=== PATIENT | male | born 1960 | race Two or more races ===

== ENCOUNTER 2022-05-13 15:59 | Inpatient (IN) | payer OTHER ==
[2022-05-13 16:07] VITALS: BMI 25.7
[2022-05-13 17:01] LABS: BASO % 0.4 % (0-2.0); EOS % 0.8 % (0-4.5); HEMATOCRIT 39.4 % (35.4-49); HEMOGLOBIN 12.8 GM/dL (11.7-16.9); LYMPH % 17.6 % (8-40); MCH 28.1 pg (25.7-33.7); MCHC 32.6 g/dl (32.0-35.9); MEAN CELL VOLUME 86.3 fl (80-96); MEAN PLT VOLUME 8.7 fl (7.5-11.1); MONO % 7.8 % (3.8-10.2); NEUT % 73.4 % (42.8-82.8); PLATELET COUNT 296 10^3/uL (134-434); RBC 4.56 M/mm3 (4.00-5.60); RDW 13.5 % (11.9-15.9); WHITE BLOOD COUNT 12.4 K/mm3 (4.0-10.0)
[2022-05-13 17:19] LABS: BLOOD UREA NITROGEN 16.2 mg/dL (7-18); CALCIUM 9.5 mg/dL (8.5-10.1)
[2022-05-13 17:20] LABS: MAGNESIUM 1.5 mg/dL (1.8-2.4)
[2022-05-13 17:23] LABS: CREATININE 1.2 mg/dL (0.55-1.3)
[2022-05-13 17:24] LABS: BILIRUBIN,TOTAL 0.4 mg/dL (0.2-1); TOT PROT 7.4 g/dl (6.4-8.2)
[2022-05-13] MEDS ORDERED: ASPIRIN 81 MG CHEWABLE TABLETS PO ONE (17:39)
[2022-05-13] MEDS ORDERED: HEPARIN NA (PORCINE) 5,000 UNITS/ML 1ML VIAL IVPUSH PRN ×2 (17:40)
[2022-05-13] MEDS ORDERED: HEPARIN INFUSION - 25,000 UNITS/500 ML INFUS.BAG IVPB SCH (17:45)
[2022-05-13] MEDS ORDERED: ASPIRIN 81 MG CHEWABLE TABLETS ONE (17:46)
[2022-05-13] MEDS ORDERED: HEPARIN INFUSION - 25,000 UNITS/500 ML INFUS.BAG IVPB ONE (17:46)
[2022-05-13] MEDS ORDERED: MAGNESIUM SULF 50% (8.12 MEQ/2 ML-1 GM VIAL) IVPB ONE (18:02)
[2022-05-13] MEDS ORDERED: MAGNESIUM SULFATE IN WATER 2 GM/50 ML IVPB IVPB ONE (18:06)
[2022-05-13] MEDS ORDERED: ENOXAPARIN NA (PORCINE) 80 MG/0.8 ML DISP.SYRIN SQ SCH (18:12)
[2022-05-13] MEDS ORDERED: ENOXAPARIN NA (PORCINE) 120 MG/0.8 ML DISP.SYRIN SQ SCH (22:00)
[2022-05-13] MEDS ORDERED: INSULIN SLIDING SCALE (NOVOLOG) 1 VIAL SQ SCH (22:00)
[2022-05-13] MEDS ORDERED: ENOXAPARIN NA (PORCINE) 80 MG/0.8 ML DISP.SYRIN SQ ONE (22:53)
[2022-05-13] MEDS ORDERED: CLOPIDOGREL BISULFATE 75 MG TABLET (FP) PO SCH (23:06)
[2022-05-13] MEDS ORDERED: CLOPIDOGREL BISULFATE 75 MG TABLET (FP) PO ONE (23:06)
[2022-05-13] MEDS ORDERED: CLOPIDOGREL BISULFATE 75 MG TABLET (FP) ONE (23:43)
[2022-05-14] MEDS ORDERED: NITROGLYCERIN 25MG/D5W 250ML 25 MG/250 ML ML IVPB SCH ×2 (03:30→04:32)
[2022-05-14] MEDS ORDERED: NITROGLYCERIN 25MG/D5W 250ML 25 MG/250 ML ML IVPB ONE (03:50)
[2022-05-14] MEDS ORDERED: ACETAMINOPHEN 325 MG TABLET (FP) PO PRN (03:52)
[2022-05-14] MEDS ORDERED: LACTATED RINGERS SOLUTION 1,000 ML/1,000 ML INFUS.BAG IV STA (05:22)
[2022-05-14 05:45] LABS: MAGNESIUM 1.8 mg/dL (1.8-2.4)
[2022-05-14 05:48] LABS: PHOSPHOROUS 3.1 mg/dL (2.5-4.9)
[2022-05-14 05:49] LABS: CHOLESTEROL 218 mg/dL (50-200); TRIGLYCERIDES 254 mg/dL (0-150)
[2022-05-14 05:50] LABS: LDL CHOLESTEROL (ONLY SJRH) 138 mg/dL (5-100)
[2022-05-14 05:51] LABS: HDL CHOLESTEROL 51 mg/dL (40-60)
[2022-05-14 06:45] LABS: HEMATOCRIT 35.3 % (35.4-49); HEMOGLOBIN 11.8 GM/dL (11.7-16.9); MCH 29.6 pg (25.7-33.7); MCHC 33.5 g/dl (32.0-35.9); MEAN CELL VOLUME 88.5 fl (80-96); PLATELET COUNT 247 10^3/uL (134-434); RBC 3.99 M/mm3 (4.00-5.60); RDW 13.6 % (11.9-15.9); WHITE BLOOD COUNT 14.9 K/mm3 (4.0-10.0)
[2022-05-14 07:04] LABS: CALCIUM 8.7 mg/dL (8.5-10.1)
[2022-05-14 07:05] LABS: BLOOD UREA NITROGEN 18.8 mg/dL (7-18)
[2022-05-14 07:08] VITALS: TEMP 98.4
[2022-05-14 07:08] LABS: CREATININE 1.2 mg/dL (0.55-1.3)
[2022-05-14 08:15] VITALS: RESP 21
[2022-05-14] MEDS ORDERED: CARVEDILOL 3.125 MG TABLET (FP) PO SCH (10:00)
[2022-05-14] MEDS ORDERED: ASPIRIN 81 MG CHEWABLE TABLETS PO SCH (10:00)
[2022-05-14] MEDS ORDERED: LOSARTAN POTASSIUM 50 MG TABLET PO SCH (10:00)
[2022-05-14] MEDS ORDERED: PATIENT'S OWN MEDICATION (NON-FORMULARY) (Telmisartan [Telmisartan] 40 MG Tablet) PO SCH (10:00)
[2022-05-14 10:31] VITALS: BP 106/52; PULSE 76
[2022-05-14] MEDS ORDERED: ATORVASTATIN CA 80 MG TABLET (FP) PO SCH (22:00)
== END 2022-05-14 09:30 | disposition short-term general hospital (02) | DRG 190 ==
LOC: JER 15:59 → JERBED 18:34
PROVIDERS: ADMIT Internal Medicine; ATTEND Internal Medicine
DX: I21.4 Non-ST elevation (NSTEMI) myocardial infarction (principal); R07.89 Other chest pain; I10 Essential (primary) hypertension; E11.9 Type 2 diabetes mellitus without complications; E87.5 Hyperkalemia; J98.11 Atelectasis
CPT/HCPCS: 0241U-QW; 36415; 71046-TC-FY; 80048; 80053; 80061; 82550; 82553; 82962; 83036; 83735; 84100; 84443; 84484; 85025; 85027; 93005; 93010; 99285-25; J1644